=== PATIENT | female | born 1995 | race African-American/Black ===

== ENCOUNTER 2016-05-27 17:48 | Emergency (ER) | payer OTHER, SELFPAY ==
[2016-05-27 18:23] LABS: Bilirubin Small (Negative); Blood, Urine Negative (Negative); Glucose, Urine (Dipstick) Negative (Negative); Ketone, Urine Trace mg/dL (Negative); Nitrite Negative (Negative); Protein, Urine (Dipstick) 100 mg/dL (Neg-Trace)
[2016-05-27 18:26] LABS: RBC/HPF None Seen HPF (0-3); WBC/HPF 0-3 HPF (0-3)
[2016-05-27 18:27] LABS: Bacteria/HPF 2+ HPF (None Seen); Squamous Epithelial 21-50 HPF (0-3)
[2016-05-27] MEDS ORDERED: Ketorolac Tromethamine 30 MG/ML VIAL ONE (18:35)
[2016-05-27] MEDS ORDERED: Metoclopramide HCl 10 MG TAB ONE (18:35)
== END 2016-05-27 19:00 | disposition home or self-care (01) ==
LOC: NAV ERS 17:48
DX: K64.8 Other hemorrhoids (principal); R53.1 Weakness; R51 Headache
CPT/HCPCS: 81003; 81015; 81025; 96372; J1885

== ENCOUNTER 2018-01-04 11:33 | Emergency (ER) | payer SELFPAY | END 2018-01-04 12:07 | disposition home or self-care (01) | LOC: NAV ERS 11:33 | DX: H00.016 Hordeolum externum left eye, unspecified eyelid (principal); F17.210 Nicotine dependence, cigarettes, uncomplicated | CPT/HCPCS: 99283 ==

== ENCOUNTER 2018-10-18 07:50 | Emergency (ER) | payer SELFPAY ==
--- NOTE | 2018-10-18 08:22 | RAD ---
EXAM: XR Knee Lt 4 View STANDARD PROVIDED CLINICAL HISTORY: Pain FINDINGS: There is no evidence for fracture or other acute osseous abnormality. Alignment appears anatomic. Glory nt spaces appear preserved. IMPRESSION: No evidence for an acute osseous abnormality. If there is persistent clinical concern, conservative m anagement and follow-up imaging advised.
[2018-10-18] MEDS ORDERED: Naproxen 500 MG TAB ONE (08:25)
== END 2018-10-18 08:30 | disposition home or self-care (01) ==
LOC: NAV ERS 07:50
DX: S80.02XA Contusion of left knee, initial encounter (principal); F17.210 Nicotine dependence, cigarettes, uncomplicated; W01.0XXA Fall on same level from slipping, tripping and stumbling without subsequent striking against object, initial encounter

== ENCOUNTER 2018-12-04 19:51 | Emergency (ER) | payer BC, SELFPAY ==
[2018-12-04] MEDS ORDERED: Naproxen 500 MG TAB ONE (20:42)
--- NOTE | 2018-12-04 20:45 | RAD ---
EXAM: 2 views of the left tibia/fibula HISTORY: Leg pain COMPARISON: None FINDINGS: There is no evidence of acute fracture or dislocation. No soft tissue swelling is seen. No degenerative changes are seen in the knee or ankle. IMPRESSION: No evidence of acute osseous abnormality.
== END 2018-12-04 20:54 | disposition home or self-care (01) ==
LOC: NAV ERS 19:51
DX: S80.12XA Contusion of left lower leg, initial encounter (principal); F17.210 Nicotine dependence, cigarettes, uncomplicated; W51.XXXA Accidental striking against or bumped into by another person, initial encounter; Y92.219 Unspecified school as the place of occurrence of the external cause

== ENCOUNTER 2019-08-26 05:53 | Emergency (ER) | payer BC, SELFPAY ==
[2019-08-26] MEDS ORDERED: traMADol HCl 50 MG TAB ONE (06:32)
--- NOTE | 2019-08-26 07:34 | RAD ---
Left shoulder 3 views HISTORY: Injury. FINDINGS: There is slight elevation of the distal clavicle in relation to the acromion by approximate ly 0.4 cm. Glenohumeral alignment is maintained. No acute fracture or aggressive osseous erosions. IMPRESSION : Mild malalignment of the acromioclavicular joint. Clinical correlation regarding other signs and symp toms of mild acromioclavicular separation is required.
== END 2019-08-26 06:55 | disposition home or self-care (01) ==
LOC: NAV ERS 05:53 → EEVIPCON 05:53 → NAV ERS 06:55
DX: S43.102A Unspecified dislocation of left acromioclavicular joint, initial encounter (principal); F17.210 Nicotine dependence, cigarettes, uncomplicated; X50.1XXA Overexertion from prolonged static or awkward postures, initial encounter

== ENCOUNTER 2021-05-28 15:19 | Emergency (ER) | payer SELFPAY | END 2021-05-28 15:39 | disposition home or self-care (01) | LOC: NAV ERS 15:19 | DX: H10.13 Acute atopic conjunctivitis, bilateral (principal); F17.210 Nicotine dependence, cigarettes, uncomplicated | CPT/HCPCS: 99283 ==